=== PATIENT | male | born 1955 | race Caucasian/White ===

== ENCOUNTER 2018-03-09 10:38 | Emergency (ER) | payer MEDICARE, OTHER ==
[~2018-03-09] VITALS: Ht 170.2 cm; Wt 79.4 kg
[~2018-03-09 10:38] MED LIST: ADULT LOW DOSE81 MG; ADVAIR HFA 230M12 GM INH; AVELOX 400 MG400 MG PO; BUMETANIDE0.25 MG/1 IM; HYDRALAZINE 2525 MG PO; LEVAQUIN 500 M500 M2 PO; LIPITOR 20 MG T20 M1 PO; MONTELUKAST SOD10 MG PO; MUCINEX TA600 MG/TA1 PO; MUCUS ER600 MG PO; NEURONTIN 300300 M1 PO; NICOTINE TRANSD21 M1 TD; PREDNISONE 10 M10 MG; PREDNISONE 10 M10 MG PO; PROAIR HFA8.5 GM; PROTONIX40 M1 PO; SPIRIVA RESPIMAT4 G1 IH
[2018-03-09] MEDS ORDERED: CHILDREN'S ASPI81 M1 PO (10:51)
[2018-03-09] MEDS ORDERED: KEFLEX500 M1 PO (10:59)
[2018-03-09] MEDS ORDERED: BACTRIM DS TAB1 EACH PO (10:59)
[2018-03-09] MEDS ORDERED: ZOFRAN ODT4 MG SUBLING (10:59)
== END 2018-03-09 11:09 | disposition home or self-care (01) ==
LOC: M.ERS 10:38
DX: S81.801A Unspecified open wound, right lower leg, initial encounter (principal); J44.9 Chronic obstructive pulmonary disease, unspecified; F17.210 Nicotine dependence, cigarettes, uncomplicated; Z87.01 Personal history of pneumonia (recurrent); Z88.5 Allergy status to narcotic agent; X58.XXXA Exposure to other specified factors, initial encounter; Y93.89 Activity, other specified; Y92.89 Other specified places as the place of occurrence of the external cause; Y99.8 Other external cause status